=== PATIENT | male | born 1935 | race Caucasian/White ===

== ENCOUNTER 2020-07-31 22:46 | Emergency (ER) | payer MEDICARE, BC ==
--- NOTE | 2020-07-31 23:20 | EDM.PDOC ---
ED HPI GENERAL MEDICAL PROBLEM - General Chief Complaint: General Stated Complaint: Bleeding Tooth From Extranction Time Seen by Provider: 07/31/20 23:05 Source of Information: Reports: Patient, Care Home Records - History of Present Illness INITIAL COMMENTS - FREE TEXT/NARRATIVE: Pt had tooth extracted today Still with some bleeding from extraction site Onset: Gradual Duration: Hour(s):, Intermittent - Related Data Allergies Allergy/AdvReac Type Severity Reaction Status Date / Time morphine Allergy Cannot Verified 07/31/20 22:52 Remember Penicillins Allergy Cannot Verified 07/31/20 22:52 Remember ED ROS GENERAL - Review of Systems Review Of Systems: See Below HEENT: Reports: Other (Dental extraction bleeding) ED EXAM, GENERAL - Physical Exam Exam: See Below Exam Limited By: No Limitations Throat/Mouth: Other (No active bleeding extraction site packed with surgi-cell) Course - Vital Signs Last Recorded V/S: Last Vital Signs Temp 97.2 F 07/31/20 22:54 Pulse 78 07/31/20 22:54 Resp 18 07/31/20 22:54 BP 121/78 07/31/20 22:54 Pulse Ox 96 07/31/20 22:54 Departure - Departure Time of Disposition: 23:20 Disposition: Home, Self-Care 01 Clinical Impression: Bleeding of mouth - Discharge Information *PRESCRIPTION DRUG MONITORING PROGRAM REVIEWED*: Not Applicable *COPY OF PRESCRIPTION DRUG MONITORING REPORT IN PATIENT [place]: Not Applicable Referrals: Jillian Pete PA [Primary Care Provider] - Additional Instructions: Follow up with dentist Sepsis Event Note (ED) - Evaluation Sepsis Screening Result: No Definite Risk - Focused Exam Vital Signs: Vital Signs Temp Pulse Resp BP Pulse Ox 07/31/20 22:54 97.2 F 78 18 121/78 96
== END 2020-07-31 23:35 | disposition home or self-care (01) ==
LOC: LL.ED 22:46
DX: K13.79 Other lesions of oral mucosa (principal); Z88.5 Allergy status to narcotic agent; Z88.0 Allergy status to penicillin
CPT/HCPCS: 99282; 99283